=== PATIENT | female | born 1965 | race Caucasian/White ===

== ENCOUNTER 2020-09-30 09:24 | Emergency (ER) | payer SELFPAY ==
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
[2020-09-30 10:36] LABS: BLOOD UREA NITROGEN,BUN 15 mg/dL (7.0-18.0); CARBON DIOXIDE,CO2 29.8 mmol/L (21.0-32.0); CHLORIDE,CL 104 mmol/L (98-107); GLUCOSE RANDOM 107 mg/dL (74-106); POTASSIUM,K 3.6 mmol/L (3.5-5.1); SODIUM,NA 139 mmol/L (136-145)
--- NOTE | 2020-09-30 11:31 | CT ---
INDICATION: Altered mental status. TECHNIQUE: CT of the head without contrast. Coronal and sagittal reformats are included. COMPARISON: None. 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 No acute infarction or acute intracranial hemorrhage. No mass effect or midline shift. No hydrocephalus or extra-axial collections. No acute osseous abnormalities. Mastoid air cells and paranasal sinuses are clear. Normal soft tissues. IMPRESSION: 1. No acute intracranial abnormalities. 2. 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 Please note that all CT scans at this facility use dose modulation, iterative reconstruction, and/or weight-based dosing when appropriate to reduce radiation dose to as low as reasonably achievable. Dictated by Faizan Huitron MD @ 09/30/2020 11:30:[address] Faizan Huitron @ Sep 30 2020 11:30AM
--- NOTE | 2020-09-30 12:05 | PCM.EKG ---
#1 Interpretation EKG Interpretation Comments: EKG: As interpreted by ER physician: Mariam: Nonspecific ST-T wave abnormalities Normal axis No evidence of ST elevation [place] Normal sinus rhythm heart rate of 92
== END 2020-09-30 11:49 | disposition home or self-care (01) ==
LOC: MW.ED 09:24
DX: F15.90 Other stimulant use, unspecified, uncomplicated (principal); I10 Essential (primary) hypertension; Z72.0 Tobacco use; Z91.041 Radiographic dye allergy status
CPT/HCPCS: 36415; 70450; 70450-26; 80053; 80305-QW; 80307; 81003; 85025; 93005; 93010; 99284; 99285-25